=== PATIENT | female | born 1960 | race Caucasian/White ===

== ENCOUNTER 2025-04-01 19:33 | Emergency (ER) | payer BC, OTHER ==
[~2025-04-01] VITALS: Ht 162.6 cm; Wt 47.4 kg
[2025-04-01 19:35] VITALS: TEMP 96.8
--- NOTE | 2025-04-01 19:45 | ELECTROCARDIOGRAPH REPORT ---
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
--- NOTE | 2025-04-01 19:54 | Physician Documentation ---
History of Present Illness ~ Chief Complaint: Shortness of Breath Stated Complaint: SOB Time Seen by MD: 20:35 Primary Medical Doctor: none HPI 64-year-old female presents to the ED with a complaint of increased shortness of breath. Just state that she has a long history of smoking but believes she does not COPD. However she has never been evaluated for. denies wheezing reports cough. Patient states she is generally feeling poorly. Does endorse some chest pain it has been intermittent with no exacerbating or relieving factors described as sharp left-sided radiating from back around the side and sometimes into neck. She reports that she did have a cardiac catheterization back in July and was told that there was no obstructive coronary artery disease however she has been referred to [place] for some additional testing secondary to being diagnosed with MINOCA. Today she was walking at the grocery store started having the chest pain and broke out in a sweat and reports she turned ghost white. Denies vomiting but does have an uneasy feeling in her stomach. Day of Onset: Apr 01, 2025 Medication Reconciliation Allergies: Coded Allergies: No Known Allergies (Unverified , 02/04/18) Review of Systems All Other Systems at this time: Reviewed and Negative ROS As stated above in the HPI, otherwise all systems are reviewed and negative. Physical Exam Vital Signs: Temperature: 96.8, Source: Temporal, Heart Rate: 90, Respiratory Rate: 21, BP: 184/97, Pulse Oximetry: 99, Weight: 47.350 Physical Exam General: Patient is awake, alert, oriented x4 in no acute distress Head: Normocephalic and atraumatic. Eyes: Conjunctival normal. EOMI. PERRL. ENT: Mucous membranes moist. Neck: Supple, trachea is midline. Chest: Clear to auscultation bilaterally without rales, rhonchi, or wheezes. There is no accessory muscle use or retractions. Cardiac: RRR without murmurs, gallops, or rubs. Abd: Soft, nondistended, nontender, with normoactive bowel sounds. No guarding, rebound, or rigidity. Extremities: Normal strength. Normal range of motion. No deformities or edema. Progress Results/Orders Results/Orders Orders - MAK VICK MD Chest,Single View (04/01/25 19:47) Culture Blood (04/01/25 19:43) Cta Chest Pe (04/01/25 21:20) Completed Orders - MAK VICK MD Electrocardiogram (04/01/25 ) CMP (04/01/25 19:37) Cbc/Diff (04/01/25 19:37) Troponin (Single) (04/01/25 19:37) Chest,Single View (04/01/25 19:47) Methylprednisolone Sod Succ (Solumedrol (04/01/25 19:40) Albuterol 2.5mg/3ml Nebule (Proventil 2. (04/01/25 19:40) Procalcitonin (04/01/25 19:43) Lacticsepsis (04/01/25 19:43) Cta Chest Pe (04/01/25 21:20) Iohexol 350mg/Ml 100ml (Omnipaque 350mg/ (04/01/25 20:58) Medications Received in ER Medications (Trade) Dose Ordered Sig/Real Route PRN Reason Start Time Stop Time Status Last Admin Dose Admin (SoluMEDROL 125mg inj) 125 mg ONCE ONCE IV 04/01/25 19:40 04/01/25 19:41 DC 04/01/25 21:10 125 MG (Proventil 2.5 MG/3ML nebule) 2.5 mg ONCE ONCE NEB 04/01/25 19:40 04/01/25 19:41 DC 04/01/25 21:34 2.5 MG Vital Signs 04/01/25 04/01/25 04/01/25 04/01/25 19:35 20:02 21:26 21:37 Temp 96.8 Pulse 90 60 64 Resp 21 13 16 B/P (MAP) 184/97 165/63 (97) Pulse Ox 99 99 100 98 O2 Delivery Room Air* Room Air* O2 Flow Rate 0 0 0 FiO2 21 21 04/01/25 21:43 Pulse 64 Resp 18 Pulse Ox 99 O2 Delivery Room Air* O2 Flow Rate 0 FiO2 21 Laboratory Tests Test 04/01/25 19:51 04/01/25 19:56 White Blood Count 8.3 Red Blood Count 4.76 Hemoglobin 14.3 Hematocrit 42.1 Mean Corpuscular Volume 88.3 Mean Corpuscular Hemoglobin 29.9 Mean Corpuscular Hemoglobin Concent 33.9 Red Cell Distribution Width 14.5 Platelet Count 276 Mean Platelet Volume 10.6 H Neutrophils (%) (Auto) 59.5 Lymphocytes (%) (Auto) 32.9 Monocytes (%) (Auto) 5.1 Eosinophils (%) (Auto) 1.4 Basophils (%) (Auto) 1.1 H Neutrophils # (Auto) 4.9 Lymphocytes # (Auto) 2.7 Monocytes # (Auto) 0.4 Eosinophils # (Auto) 0.1 Basophils # (Auto) 0.1 CBC Comment Platelet Estimate Normal Large Platelets Few Red Blood Cell Morphology Perf Basophilic Stippling Elliptocytes Few Sodium Level 139 Potassium Level 3.6 Chloride Level 103 Carbon Dioxide Level 28.1 Anion Gap 8 Blood Urea Nitrogen 12 Creatinine 1.33 H Estimated GFR/1.73 m2 40 BUN/Creatinine Ratio 9.0 L Glucose Level 120 H Calcium Level 9.1 Total Bilirubin 1.1 H Aspartate Amino Transf (AST/SGOT) 18 Alanine Aminotransferase (ALT/SGPT) 18 Alkaline Phosphatase 58 Troponin I High Sensitivity 4 Total Protein 7.2 Albumin 4.1 Globulin 3.1 Albumin/Globulin Ratio 1.3 Procalcitonin < 0.05 Chemistry Comments Lactic Acid Level 1.4 Microbiology Date/Time Source Procedure Growth Status 04/01/25 19:58 Blood Arm Right Blood Culture - Preliminary NEGATIVE (LESS THAN 24 HOURS) Resulted EKG/XRAY/CT/US/VASC/MRI EKG : Additional Comment EKG interpreted by myself shows time of 1943, rate 83, sinus rhythm, normal axis, no ST changes Chest X-Ray : Additional Comments Exam: CHEST,SINGLE VIEW CHEST RADIOGRAPH Indication: shortness of breath Technique: Single frontal view of the chest was obtained COMPARISON: None FINDINGS: Lines and Tubes: None Lungs: Clear Pleura: No effusion. No pneumothorax. Cardiomediastinal contours: Unremarkable Bones: Unremarkable IMPRESSION: No acute disease. Medical Decision Making Findings Patient presents to the emergency room for evaluation of chest pain and shortness of breath. Differentials include but are not limited to ACS, pulmonary embolism, pneumonia, anxiety therefore emergent labs and imaging indicated. CTA he is reassuring. Patient's onset of symptoms was 4:00 p.m. therefore only one troponin was ordered which was reassuring. She reports a cardiac catheterization within the past year that has free of coronary artery di sease but does carry a diagnosis of MINOCA. After discussing risks benefits alternatives and offering admission patient feels safe for discharge. Of note she does state she has multiple life stressors including the of her parents and her son being incarcerated and she feels at her wits end. Denies any SI/HI but is tearful when speaking up this in his possible for subjective shortness of breath is related to this. She passed the road test with pulse ox in the upper 90s. Heart Score: 2 Departure Disposition: 01 HOME / SELF CARE / HOMELESS Impression: Primary Impression: Chest pain Additional Impression: Shortness of breath Condition: Stable Discharge Instructions: Nonspecific Chest Pain, Adult Departure Forms: Excuse form Work or School Excused From: Work Excuse beginning now through the following date: Apr 04, 2025 May Return but still avoid physical Activity from now until: Apr 04, 2025 May Return to full physical activity as of: Apr 04, 2025 Referrals: NO PRIMARY CARE PROVIDER (PCP) Education Educated: Patient Educated regarding: diagnosis, treatment, need for follow up Signature Scribe Signature: No scribe Attestation: The note accurately reflects work and decisions made by me.Mak Vick MD 04/01/25 23:41 FELISHA GARZA NP Apr 01, 2025 19:54 MAK VICK MD Apr 01, 2025 20:48
--- NOTE | 2025-04-01 20:04 | RADIOLOGY REPORT ---
CHEST RADIOGRAPH Indication: shortness of breath Technique: Single frontal view of the chest was obtained COMPARISON: None FINDINGS: Lines and Tubes: None Lungs: Clear Pleura: No effusion. No pneumothorax. Cardiomediastinal contours: Unremarkable Bones: Unremarkable IMPRESSION: No acute disease.
[2025-04-01 20:12] LABS: BASOPHILS # (AUTO) 0.1 X10'3 (0-0.2); BASOPHILS % (AUTO) 1.1 % (0-1); EOSINOPHILS # (AUTO) 0.1 X10'3 (0-0.9); EOSINOPHILS % (AUTO) 1.4 % (0-6); HEMATOCRIT 42.1 % (35.0-45.0); HEMOGLOBIN 14.3 g/dl (12.0-16.0); LYMPHOCYTES # (AUTO) 2.7 X10'3 (1.1-4.8); LYMPHOCYTES % (AUTO) 32.9 % (21-51); MEAN CORPUSCULAR HEMOGLOBIN 29.9 PG (27.0-31.0); MEAN CORPUSCULAR HGB CONC 33.9 g/dL (33.0-36.5); MEAN CORPUSCULAR VOLUME 88.3 FL (78-98); MEAN PLATELET VOLUME 10.6 FL (7.4-10.4); MONOCYTES # (AUTO) 0.4 X10'3 (0-0.9); MONOCYTES % (AUTO) 5.1 % (2-12); NEUTROPHILS # (AUTO) 4.9 X10'3 (1.8-7.7); NEUTROPHILS % (AUTO) 59.5 % (42-75); PLATELET COUNT 276 X10'3 (140-440); RED BLOOD COUNT 4.76 X10'6 (4.20-5.60); RED CELL DISTRIBUTION WIDTH 14.5 % (11.5-14.5); WHITE BLOOD COUNT 8.3 X10'3 (4.5-11.0)
[2025-04-01 20:39] LABS: ALANINE AMINOTRANSFERASE 18 U/L (12-78); ALBUMIN 4.1 G/DL (3.4-5.0); ALBUMIN/GLOBULIN RATIO 1.3 (1.1-1.5); ALKALINE PHOSPHATASE 58 IU/L (46-116); ANION GAP 8 (8-16); ASPARTATE AMINO TRANSFERASE 18 U/L (10-37); BILIRUBIN,TOTAL 1.1 MG/DL (0.1-1.0); BLOOD UREA NITROGEN 12 MG/DL (7-18); CALCIUM 9.1 MG/DL (8.5-10.1); CHLORIDE 103 MMOL/L (99-107); CREATININE 1.33 MG/DL (0.40-0.90); GLUCOSE 120 MG/DL (70-104); POTASSIUM 3.6 MMOL/L (3.5-5.1); SODIUM 139 MMOL/L (135-145); TOTAL CARBON DIOXIDE 28.1 MMOL/L (24-32); TOTAL PROTEIN 7.2 G/DL (6.4-8.2); eCRCL 32 ML/MIN; eGFR 40 ML/MIN
[2025-04-01 20:53] LABS: PLATELET ESTIMATE NORMAL
[2025-04-01 20:54] LABS: ELLIPTOCYTES FEW; LARGE PLATELETS FEW
[2025-04-01] MEDS ORDERED: iohexol 350MG/ML 100ml bottle IV ONE (20:58)
[2025-04-01] MEDS: methylPREDNISolone sod succ 125mg/2ml vial IV ONE (21:10)
[2025-04-01] MEDS: albuterol 2.5 MG/3 ML nebule NEB ONE (21:34)
[2025-04-01 21:37] VITALS: PULSE 64; RESP 16; O2SAT 98
[2025-04-01 21:43] VITALS: PULSE 64; RESP 18; O2SAT 99
--- NOTE | 2025-04-01 22:15 | RADIOLOGY REPORT ---
EXAM: CT CTA CHEST PE W/ IV CONTRAST History: Shortness of breath Comparison Study: None TECHNIQUE: A digital physical therapist clinic director image was obtained. During the uneventful, intravenous administration of c ontrast material, multislice data acquisition was obtained through the chest. 3-D postprocessing is performed by technologist including MIP imaging Radiation Dose : CTDI vol 5.9 mGy, DLP 246.58 mGy*cm. Findings: Lungs: There is mild scattered atelectasis. Pleura: Unremarkable Heart/Great vessels: No cardiomegaly or pericardial effusion. No pulmonary embolism, aneurysm, or dis section. Mediastinum: Unremarkable. Soft tissues/Bones: Unremarkable Upper abdomen: Right hepatic cyst. The partially visualized upper abdomen is within normal limits. Impression: 1. No acute intrathoracic abnormality identified.
[2025-04-01 23:47] VITALS: BP 117/71; PULSE 59; RESP 13; O2SAT 94
== END 2025-04-01 23:54 | disposition home or self-care (01) ==
LOC: ER 19:34
DX: R07.9 Chest pain, unspecified (principal); R06.02 Shortness of breath; Z87.891 Personal history of nicotine dependence
CPT/HCPCS: 36415; 71045; 71275; 80053; 83605; 84145; 84484; 85025; 87040; 93005; 94640; 96374; 99285; J2919; Q9967; 85008